=== PATIENT | male | born 1975 | race African-American/Black ===

== ENCOUNTER 2018-01-18 14:52 | Emergency (ER) | payer OTHER ==
[~2018-01-18] VITALS: Ht 188 cm; Wt 93.7 kg
[~2018-01-18 14:52] MED LIST: ALBU8.5H8 INH; ONDA4TAB7 PO; PROM25TA10 PO
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
[2018-01-18 16:04] LABS: BASO % 0 % (0-3); EOS % 0 % (0-3); HEMATOCRIT 38.6 % (39.0-53.0); HEMOGLOBIN 12.4 g/dL (13.0-17.5); LYMPH # 1.5 x10^3/uL (1.0-4.8); LYMPH % 11 % (24-48); MEAN CORPUSCULAR HEMOGLOBIN 30 pg (25-35); MEAN CORPUSCULAR HGB CONC 32 g/dL (31-37); MEAN CORPUSCULAR VOLUME 92 fL (79-100); MONO % 8 % (0-9); NEUT # 10.8 x10^3uL (1.8-7.7); NEUT % 81 % (31-73); PLATELET COUNT 356 x10^3/uL (140-400); RED BLOOD COUNT 4.18 x10^6/uL (4.30-5.70); RED CELL DISTRIBUTION WIDTH 13.8 % (11.5-14.5); WHITE BLOOD COUNT 13.4 x10^3/uL (4.0-11.0)
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
[2018-01-18] MEDS ORDERED: IV NORMAL SALINE 100ML 100 ML ONE (17:04)
[2018-01-18] MEDS: IV NORMAL SALINE 1,000ML 1,000 ML IV ONE (17:09)
[2018-01-18] MEDS: ACETAMINOPHEN 500 MG TABLET PO ONE (17:09)
[2018-01-18] MEDS: AZITHROMYCIN 250 MG TABLET. PO ONE (17:09)
[2018-01-18] MEDS: diphenhydrAMINE 50 MG/ML VIAL IVP ONE (17:10)
[2018-01-18] MEDS: METOCLOPRAMIDE HCL 10 MG/2 ML VIAL. IV ONE (17:10)
[2018-01-18 17:11] VITALS: BP 125/72
[2018-01-18 17:25] LABS: ALBUMIN 2.8 g/dL (3.4-5.0); ALBUMIN/GLOBULIN RATIO 0.6 (1.0-1.7); CALCIUM 8.6 mg/dL (8.5-10.1); GFR 100.1; TOTAL BILIRUBIN 0.5 mg/dL (0.2-1.0); TOTAL PROTEIN 7.7 g/dL (6.4-8.2)
[2018-01-18] MEDS ORDERED: AZIT250T6 PO (18:10)
== END 2018-01-18 18:55 | disposition home or self-care (01) ==
LOC: ER 14:52
DX: J18.8 Other pneumonia, unspecified organism (principal); R51 Headache; J32.4 Chronic pansinusitis; I10 Essential (primary) hypertension; V79.59XA Passenger on bus injured in collision with other motor vehicles in traffic accident, initial encounter; Y93.89 Activity, other specified; Y92.488 Other paved roadways as the place of occurrence of the external cause; Y99.8 Other external cause status
CPT/HCPCS: 36415; 70450; 71046; 80053; 85025; 96365; 96375; 99285; J0456; J0696; J1200; J2765; J7030

== ENCOUNTER 2021-06-26 01:12 | Emergency (ER) | payer SELFPAY ==
[~2021-06-26] VITALS: Ht 188 cm; Wt 103.8 kg
[~2021-06-26 01:12] MED LIST changes: +ALBU2.5V8 INH; -ALBU8.5H8 INH; +AZIT250T6 PO
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
[2021-06-26 01:43] VITALS: BP 144/88
[2021-06-26] MEDS ORDERED: IBUPROFEN 600 MG TABLET. PO ONE (01:45)
[2021-06-26] MEDS ORDERED: oxyCODONE/APAP 5/325 1 TAB TABLET PO ONE (01:45)
== END 2021-06-26 02:02 | disposition home or self-care (01) ==
LOC: ER 01:12
DX: R20.2 Paresthesia of skin (principal); I10 Essential (primary) hypertension
CPT/HCPCS: 99283

== ENCOUNTER 2021-08-15 02:59 | Emergency (ER) | payer MEDICAID ==
[~2021-08-15] VITALS: Ht 188 cm; Wt 94.0 kg
[2021-08-15] MEDS ORDERED: GABA600T7 PO (03:33)
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
[2021-08-15 04:25] VITALS: BP 139/98
[2021-08-15] MEDS: oxyCODONE/APAP 5/325 1 TAB TABLET PO ONE (04:59)
[2021-08-15] MEDS: GABAPENTIN 100 MG CAPSULE. PO ONE (05:00)
== END 2021-08-15 04:26 | disposition home or self-care (01) ==
LOC: ER 02:59
DX: R20.2 Paresthesia of skin (principal); I10 Essential (primary) hypertension
CPT/HCPCS: 99283

== ENCOUNTER 2021-08-18 05:02 | Emergency (ER) | payer MEDICAID ==
[~2021-08-18] VITALS: Ht 188 cm; Wt 94.0 kg
[~2021-08-18 05:02] MED LIST changes: +GABA600T7 PO
[2021-08-18 05:36] VITALS: BP 139/98
== END 2021-08-19 06:39 | disposition left against medical advice (07) ==
LOC: ER 05:02
DX: M79.604 Pain in right leg (principal); Z53.21 Procedure and treatment not carried out due to patient leaving prior to being seen by health care provider